=== PATIENT | male | born 1980 | race African-American/Black ===

== ENCOUNTER 2018-08-29 14:21 | Emergency (ER) | payer SELFPAY ==
[~2018-08-29] VITALS: Ht 175.3 cm; Wt 87.0 kg
[2018-08-29] MEDS ORDERED: TETANUS, DIPHTHERIA, PERTUSSIS VAC/PF 0.5ML (>7YR OLD) IM ONE (15:15)
[2018-08-29] MEDS ORDERED: IBUPROFEN 600MG TABLET PO ONE (15:15)
[2018-08-29 17:18] VITALS: BP 116/82
== END 2018-08-29 17:34 | disposition left against medical advice (07) ==
LOC: ER 14:21
DX: S01.01XA Laceration without foreign body of scalp, initial encounter (principal); M25.552 Pain in left hip; W22.8XXA Striking against or struck by other objects, initial encounter; W12.XXXA Fall on and from scaffolding, initial encounter; Y93.89 Activity, other specified; Y92.69 Other specified industrial and construction area as the place of occurrence of the external cause; Z23 Encounter for immunization
CPT/HCPCS: 73502; 90471; 90715; 99283